=== PATIENT | male | born 1970 | race Caucasian/White ===

== ENCOUNTER → 2019-04-08 09:42 | Outpatient (BNVA) | payer MEDICARE, SELFPAY | PROVIDERS: Family Provider Family Medicine; PCP Family Medicine; Visit Provider Family Medicine | DX: E11.9 Type 2 diabetes mellitus without complications (principal); I10 Essential (primary) hypertension; F41.1 Generalized anxiety disorder; K21.9 Gastro-esophageal reflux disease without esophagitis; E78.5 Hyperlipidemia, unspecified; E78.00 Pure hypercholesterolemia, unspecified | CPT/HCPCS: 80048; 83036 ==

== ENCOUNTER → 2019-12-18 11:06 | Outpatient (BNVA) | payer MEDICARE, SELFPAY | PROVIDERS: Family Provider Family Medicine; PCP Family Medicine; Visit Provider Family Medicine | DX: E11.9 Type 2 diabetes mellitus without complications (principal); F41.1 Generalized anxiety disorder; E78.5 Hyperlipidemia, unspecified; N52.9 Male erectile dysfunction, unspecified; K21.9 Gastro-esophageal reflux disease without esophagitis; I10 Essential (primary) hypertension; E78.00 Pure hypercholesterolemia, unspecified; Z28.21 Immunization not carried out because of patient refusal; B96.89 Other specified bacterial agents as the cause of diseases classified elsewhere; J32.9 Chronic sinusitis, unspecified | CPT/HCPCS: 80053; 80061; 83036 ==

== ENCOUNTER → 2020-03-23 09:40 | Outpatient (BNVA) | payer MEDICARE, SELFPAY | PROVIDERS: Family Provider Family Medicine; PCP Family Medicine; Visit Provider Family Medicine | DX: E11.9 Type 2 diabetes mellitus without complications (principal); Z88.9 Allergy status to unspecified drugs, medicaments and biological substances | CPT/HCPCS: 83036 ==

== ENCOUNTER → 2020-04-01 11:53 | Outpatient (BNVA) | payer MEDICARE, SELFPAY | PROVIDERS: Family Provider Family Medicine; PCP Family Medicine; Visit Provider Emergency Medicine | DX: Z20.822 Contact with and (suspected) exposure to COVID-19 (principal); R68.89 Other general symptoms and signs | CPT/HCPCS: 87400; 87635 ==

== ENCOUNTER → 2020-04-05 16:58 | Outpatient (BNVA) | payer MEDICARE, SELFPAY | PROVIDERS: Family Provider Family Medicine; PCP Family Medicine; Visit Provider Emergency Medicine | DX: Z20.822 Contact with and (suspected) exposure to COVID-19 (principal); R10.9 Unspecified abdominal pain; R11.2 Nausea with vomiting, unspecified | CPT/HCPCS: 87635 ==

== ENCOUNTER 2020-04-06 12:26 | Outpatient (CLI) | payer MEDICARE, SELFPAY ==
--- NOTE | 2020-04-06 12:35 | XRR_ITS ---
PROCEDURE INFORMATION: Exam: XR Complete Acute Abdomen Series Exam date and time: 04/06/2020 12:53 PM Age: 50 years old Clinical indication: Nausea and vomiting; Abdominal pain; Generalized; Patient HX: Abd pain all over x 14 days, n/v; Additional info: R10.9 - unspecified abdominal pain TECHNIQUE: Imaging protocol: XR complete acute abdomen series, including 2 or more views of the abdomen and a single view chest. COMPARISON: No relevant prior studies available. FINDINGS: Lungs: Normal. No consolidation. Pleural spaces: Normal. No pleural effusions. No pneumothorax. Heart/Mediastinum: Normal. No cardiomegaly. Gastrointestinal tract: Peak there is moderate colonic fecal stasis in the ascending colon and proximal descending colon. No bowel dilation. Intraperitoneal space: Normal. No free air. Bones/joints: Surgical hardware is seen in the cervical spine No acute fracture. Soft tissues: Normal. XR/XR acute abdomen series [id number] IMPRESSION: 1. No acute chest abnormalities. 2. Negative for acute GI abnormality 3. Surgical hardware is seen in the cervical spine
== END 2020-04-06 12:27 | disposition home or self-care (01) ==
LOC: RAD 12:31
PROVIDERS: PCP Family Medicine; Visit Provider Emergency Medicine
DX: R10.9 Unspecified abdominal pain (principal); R11.2 Nausea with vomiting, unspecified
CPT/HCPCS: 74022

== ENCOUNTER → 2020-06-23 10:15 | Outpatient (BNVA) | payer MEDICARE, SELFPAY | PROVIDERS: PCP Family Medicine; Visit Provider Family Medicine | DX: E11.9 Type 2 diabetes mellitus without complications (principal); I10 Essential (primary) hypertension | CPT/HCPCS: 80053; 83036 ==

== ENCOUNTER → 2020-08-03 12:12 | Outpatient (BNVA) | payer MEDICARE, SELFPAY | PROVIDERS: PCP Family Medicine; Visit Provider Family Medicine | DX: E11.9 Type 2 diabetes mellitus without complications (principal); N18.1 Chronic kidney disease, stage 1; Z88.9 Allergy status to unspecified drugs, medicaments and biological substances; Z74.09 Other reduced mobility; G89.28 Other chronic postprocedural pain; Z00.00 Encounter for general adult medical examination without abnormal findings | CPT/HCPCS: 80048 ==

== ENCOUNTER → 2020-10-06 10:15 | Outpatient (BNVA) | payer MEDICARE, SELFPAY | PROVIDERS: PCP Family Medicine; Visit Provider Family Medicine | DX: E11.9 Type 2 diabetes mellitus without complications (principal); N18.1 Chronic kidney disease, stage 1; E78.00 Pure hypercholesterolemia, unspecified; M62.830 Muscle spasm of back; Z88.9 Allergy status to unspecified drugs, medicaments and biological substances; S46.811A Strain of other muscles, fascia and tendons at shoulder and upper arm level, right arm, initial encounter | CPT/HCPCS: 80053; 80061; 83036 ==

== ENCOUNTER → 2021-04-20 10:01 | Outpatient (BNVA) | payer MEDICARE, SELFPAY | PROVIDERS: PCP Family Medicine; Visit Provider Family Medicine | DX: N52.9 Male erectile dysfunction, unspecified (principal); E11.9 Type 2 diabetes mellitus without complications; F41.1 Generalized anxiety disorder; N18.1 Chronic kidney disease, stage 1; I10 Essential (primary) hypertension; E78.00 Pure hypercholesterolemia, unspecified; N52.2 Drug-induced erectile dysfunction | CPT/HCPCS: 80048; 83036 ==

== ENCOUNTER → 2021-04-24 10:04 | Outpatient (BNVA) | payer MEDICARE, SELFPAY | PROVIDERS: PCP Family Medicine; Visit Provider Nurse Practitioner Family | DX: Z20.822 Contact with and (suspected) exposure to COVID-19 (principal); J11.1 Influenza due to unidentified influenza virus with other respiratory manifestations; R68.89 Other general symptoms and signs | CPT/HCPCS: 87400; 87635 ==

== ENCOUNTER 2021-05-04 22:19 | Emergency (ER) | payer MEDICARE, SELFPAY ==
--- NOTE | 2021-05-04 22:25 | XRR_ITS ---
PROCEDURE INFORMATION: Exam: XR Chest Exam date and time: 05/04/2021 10:25 PM Age: 51 years old Clinical indication: Shortness of breath; Prior surgery; Surgery type: Cervical fusion; Patient HX: SOB. Flu positive. ; Additional info: Flu like syndrome TECHNIQUE: Imaging protocol: XR of the chest. Views: 1 view. COMPARISON: CR XR acute abdomen series [id number] 04/06/2020 1:08 PM FINDINGS: Lungs: Ill-defined opacity in the retrocardiac left lower lung. Right lung is clear. Pleural spaces: There is no pleural effusion or pneumothorax. Heart/Mediastinum: Cardiomediastinal contours are unremarkable. Bones/joints: Lower cervical fusion noted. XR/XR chest 1V portable [id number] IMPRESSION: Nonspecific left lower lung opacity. Possible infection.
[2021-05-04 22:27] VITALS: BP 136/95; PULSE 85; RESP 16; TEMP 36.6; O2SAT 95; BMI 34.0
--- NOTE | 2021-05-04 23:35 | W.ED.NAVMDI ---
HPI - Nausea/Vomiting/Diarrhea General: Chief complaint: Nausea/Vomiting/Diarrhea Stated complaint: + Flu\ N\V Time Seen by Provider: 05/04/21 23:33 History of Present Illness: 51-year-old male patient comes in today with complaints of nausea and vomiting and diarrhea starting this afternoon. Patient had tested positive for for the flu on 24 April. Patient reports starting to feel better yesterday until this afternoon he started having nausea and vomiting. Patient reports diffuse abdominal pain. Patient appears mildly unwell but not toxic. Patient appears in mild pain. Patient has a history of diabetes mellitus, hypertension, GERD, hyperlipidemia, and chronic kidney disease. Patient reports no abdominal surgeries. Associated nausea: Yes Associated symtoms: Reports malaise and nausea Review of Systems General: Reports: 10 or more systems reviewed and unremarkable except in HPI and below Const: Reports: malaise GI: Reports: abdominal pain, nausea and diarrhea PFSH ED PFSH: Medical History Benign hypertension CKD (chronic kidney disease) Erectile dysfunction PRATEEK (generalized anxiety disorder) GERD (gastroesophageal reflux disease) Hyperlipidemia Multiple allergies ELENA (obstructive sleep apnea) Type 2 diabetes mellitus Unable to tolerate Metformin. Surgical History H/O neck surgery Previous back surgery S/P vasectomy Family History Mother Cancer Father Diabetes Other Hypertension Social History Smoking and tobacco status: former smoker Alcohol intake: former Caregiver/support person: No Household members: foster family Housing: House Marital status: Legally Current occupational status: disabled Current gender identity: Male Physical Exam Const: COMMON NORMALS: alert HENMT: COMMON NORMALS: normocephalic and Normal external nose present HEAD & SCALP: normocephalic NOSE: Normal external nose present THROAT: posterior oropharynx normal Eye: COMMON NORMALS: Equal, round and reactive pupils present PUPIL: Yes Equal, round and reactive pupils present Resp: COMMON NORMALS: normal respiratory effort and clear to auscultation bilaterally AUSCULTATION: clear to auscultation bilaterally Cardio: COMMON NORMALS: regular rate and regular rhythm RATE: regular rate RHYTHM: regular rhythm GI: PALPATION: Yes Firmness to palpation present (GI), Yes Tenderness to palpation present (GI) (Generalized) and No Guarding due to palpation present (GI) : COMMON NORMALS: Yes no CVA tenderness BLADDER/KIDNEY EXAM: Yes no CVA tenderness Back/Pelvis: COMMON NORMALS: no CVA tenderness Extremity: COMMON NORMALS: no pedal edema Neuro: SENSORIUM/ORIENTATION: Yes alert Skin: COMMON NORMALS: no rashes or lesions noted GENERAL SKIN EXAM: no rashes or lesions noted Course ED course: 29, Dr. Fox from [facility] contacted me with report from CT scan of abdomen pelvis. Patient was noted to have a large portal vein clot to his main venous branch. No other abnormalities was noted to the CT scan. I discussed this with Dr. Olivares who recommended I contact vascular at [facility] in [place] for further recommendations. Patient was notified of abnormality and understands. Patient reports some improvement in symptoms since IV fluids and Zofran. Vital Signs: Vital signs: Vital Signs Temperature 97.9 F 05/04/21 22:27 Pulse Rate 85 05/04/21 22:27 Respiratory Rate 16 05/04/21 22:27 Blood Pressure 136/95 05/04/21 22:27 Pulse Oximetry 95 05/04/21 22:27 MDM - Nausea/Vomiting/Diarrhea Medical Decision Making 51-year-old male patient comes in today with abdominal pain. On exam patient is alert and oriented. Patient has abdominal tenderness. Normal bowel sounds. Patient recently got over the flu. Vital signs were normal. Differential diagnosis includes but not limited to gastroenteritis, bowel obstruction, dehydration, cholecystitis, appendicitis. CBC was unremarkable. CMP noted a elevated blood sugar of 575 and sodium of 132. Patient was given IV fluids and ondansetron with improvement in pain and discomfort. CT of the abdomen pelvis noted a nonocclusive thrombosis of the portal vein. I reviewed this with Dr. Olivares who recommended we talk to vascular at [facility] in [place]. I talked to Dr. Wise who recommended no vascular intervention at this time, with recommendations for DVT treatment and further evaluation for the cause of thrombosis. I discussed this further with Dr. Olivares who agreed with plan with follow-up with Dr. Fuentes for further evaluation regarding the thrombosis. Patient was given 100 mg of enoxaparin with 10 mg of Eliquis. Patient will be continued on Eliquis per DVT dosing. Patient reported understanding of care plan and need for follow-up or return to the ER. Patient was also given 10 units of Humalog insulin for his elevated blood sugar. Lab Data : 05/04/21 23:40 05/04/21 23:40 Radiology Impressions Chest X-Ray 05/04/21 22:25 IMPRESSION: Nonspecific left lower lung opacity. Possible infection. ADDENDUM: 05/05/[address] demonstrates no abnormality in the left lower lung. Abdomen/Pelvis CT 05/04/21 23:42 IMPRESSION: 1. Extensive nonocclusive thrombus in the portal vein. 2. Incidental findings above. Laboratory Results WBC 13.0 10^3/uL (4.0-10.0) H 05/04/21 23:40 RBC 6.05 10^6/uL (4.1-5.3) H 05/04/21 23:40 Hgb 16.9 g/dL (11.7-16.6) H 05/04/21 23:40 Hct 49.3 % (42.0-52.0) 05/04/21 23:40 MCV 81.5 fl (80-94) 05/04/21 23:40 MCH 27.9 pg (28.0-34.0) L 05/04/21 23:40 MCHC 34.3 g/dL (30.0-36.0) 05/04/21 23:40 RDW 12.4 % (12.1-15.1) 05/04/21 23:40 Plt Count 127 10^3/cmm (130-400) L 05/04/21 23:40 MPV 10.7 fL (7.4-10.4) H 05/04/21 23:40 Neut % (Auto) 64.7 % 05/04/21 23:40 Lymph % (Auto) 23.1 % 05/04/21 23:40 [place] % (Auto) 9.6 % 05/04/21 23:40 Eos % (Auto) 1.2 % 05/04/21 23:40 Baso % (Auto) 0.2 % 05/04/21 23:40 Neut # (Auto) 8.37 10^3/uL (1.8-7.7) H 05/04/21 23:40 Lymph # (Auto) 3.0 10^3/uL (0.8-4.8) 05/04/21 23:40 [place] # (Auto) 1.2 10^3/uL (0.2-0.9) H 05/04/21 23:40 Eos # (Auto) 0.2 10^3/uL (0.0-0.8) 05/04/21 23:40 Baso # (Auto) 0.0 10^3/uL (0.0-0.1) 05/04/21 23:40 Nucleated RBC % (auto) 0 % 05/04/21 23:40 Nucleated RBCs # 0.0 /100WBC 05/04/21 23:40 Sodium 132 mmol/L (136-145) L 05/04/21 23:40 Potassium 3.9 mmol/L (3.5-5.1) 05/04/21 23:40 Chloride 94 mmol/L (98-107) L 05/04/21 23:40 Carbon Dioxide 25 mmol/L (22-29) 05/04/21 23:40 Anion Gap 16.9 (5-19) 05/04/21 23:40 BUN 25 mg/dL (6-20) H 05/04/21 23:40 Creatinine 1.2 mg/dL (0.7-1.2) 05/04/21 23:40 GFR Calculation 64.1 mL/min (90-130) L 05/04/21 23:40 Glucose 575 mg/dL (65-115) H* 05/04/21 23:40 Calculated Osmolality 305 mOsm/kg (285-295) H 05/04/21 23:40 Calcium 9.2 mg/dL (8.5-10.5) 05/04/21 23:40 Total Bilirubin 0.8 mg/dL (0.15-1.2) 05/04/21 23:40 AST 32 U/L (0-40) 05/04/21 23:40 ALT 90 U/L (0-41) H 05/04/21 23:40 Alkaline Phosphatase 111 IU/L (40-130) 05/04/21 23:40 Total Protein 7.2 g/dL (6.6-8.7) 05/04/21 23:40 Albumin 4.4 g/dL (3.5-5.2) 05/04/21 23:40 Globulin 2.8 g/dL (1.3-4.6) 05/04/21 23:40 Lipase 80 U/L (13-60) H 05/04/21 23:40 Serum Ketones Negative (Negative) 05/04/21 23:40 Discharge Plan Discharge Patient Disposition: Home Clinical Impression: Deep vein thrombosis of portal vein Abdominal pain Qualifiers: Abdominal location: generalized Qualified Code(s): R10.84 - Generalized abdominal pain Condition: Stable Prescriptions: New Eliquis DVT-PE Treat 30D Start 5 mg (74 tabs) tablets,dose pack See Rx Instructions .ROUTE .COMPLEX Qty: 74 0RF Rx Instructions: orally per package directions hydrocodone-acetaminophen 5-325 mg tablet 1 tab PO Q8H PRN (Reason: pain) Qty: 7 0RF No Action amlodipine 10 mg tablet 10 mg PO DAILY 90 Days Qty: 90 1RF atorvastatin 20 mg tablet See Rx Instructions .ROUTE .COMPLEX Qty: 90 1RF Dose Instruction: TAKE 1 TABLET BY MOUTH EVERY DAY Rx Instructions: TAKE 1 TABLET BY MOUTH EVERY DAY citalopram 10 mg tablet See Rx Instructions .ROUTE .COMPLEX Qty: 90 1RF Dose Instruction: TAKE 1 TABLET BY MOUTH EVERY DAY Rx Instructions: TAKE 1 TABLET BY MOUTH EVERY DAY pantoprazole 40 mg tablet,delayed release (DR/EC) See Rx Instructions .ROUTE .COMPLEX Qty: 90 1RF Dose Instruction: TAKE 1 TABLET BY MOUTH DAILY Rx Instructions: TAKE 1 TABLET BY MOUTH DAILY olmesartan 40 mg tablet 40 mg PO DAILY 90 Days Qty: 90 1RF cyclobenzaprine 5 mg tablet 10 mg PO TID MDD 6 tabs PRN (Reason: muscle spasm) Qty: 30 1RF Rx Instructions: 1 or 2 tabs as needed azithromycin 250 mg tablet See Rx Instructions PO .COMPLEX Qty: 6 0RF Rx Instructions: take 500 mg today (day 1), then 250 mg for 4 days (days 2-5) PO dexamethasone 6 mg tablet 6 mg PO DAILY 7 Days Qty: 7 0RF oseltamivir [Tamiflu] 75 mg capsule 75 mg PO BID 5 Days Qty: 10 0RF sildenafil [Viagra] 100 mg tablet 100 mg PO QDAY PRN (Reason: sexual activity) 30 Days Qty: 30 1RF glipizide 10 mg tablet extended release 24hr 10 mg PO BID 90 Days Qty: 180 1RF buspirone 10 mg tablet See Rx Instructions .ROUTE .COMPLEX Qty: 90 2RF Dose Instruction: TAKE 1 TABLET BY MOUTH THREE TIMES DAILY Rx Instructions: TAKE 1 TABLET BY MOUTH THREE TIMES DAILY hydroxyzine HCl 10 mg tablet See Rx Instructions .ROUTE .COMPLEX Qty: 30 2RF Dose Instruction: TAKE 1 TABLET BY MOUTH AT BEDTIME FOR ANXIETY Rx Instructions: TAKE 1 TABLET BY MOUTH AT BEDTIME FOR ANXIETY empagliflozin 10 mg tablet 10 mg PO QAM 30 Days Qty: 30 2RF Discharge Orders: Discharge ED (Routine); Ordered 05/05/21 Ordered By: Mark Florez Referrals: Brooke Leonard MD [Primary Care Provider] - Discharge Diet: Usual diet Discharge Activity: Increase activity as tolerated Patient Instructions: Deep Vein Thrombosis (ED) Activity Restrictions/Additional Instructions: Home and rest. Drink plenty of water and fluids. Follow-up with primary care within 1 week. Case management will contact you with regard to follow-up with Dr. Fuentes for further evaluation and treatment regarding the thrombosis. Light diet. Return to ER for worsening symptoms or new concerns. Coding Level of Care Code ED Reclamation Kettle Tender for Alexia Fwd Exam Comprehensive
--- NOTE | 2021-05-04 23:42 | CTR_ITS ---
PROCEDURE INFORMATION: Exam: CT Abdomen And Pelvis With Contrast Exam date and time: 05/04/2021 11:42 PM Age: 51 years old Clinical indication: Nausea and vomiting; Abdominal pain; Patient HX: C/O generalized abd pain with black emesis. ; Additional info: Diffuse abd pain, n/v/d TECHNIQUE: Imaging protocol: Computed tomography of the abdomen and pelvis with contrast. Radiation optimization: All CT scans at this facility use at least one of these dose optimization techniques: automated exposure control; mA and/or kV adjustment per patient size (includes targeted exams where dose is matched to clinical indication); or iterative reconstruction. Contrast material: OMNI 300; Contrast volume: 95 ml; Contrast route: INTRAVENOUS (IV); COMPARISON: CR XR acute abdomen series [id number] 04/06/2020 1:08 PM RADIATION DOSE METRICS: Total DLP (mGy-cm): 1910.6 FINDINGS: Lungs: Lung bases are clear. Liver: The liver is normal. Gallbladder and bile ducts: The gallbladder is normal. There is no biliary dilation. Pancreas: The pancreas is unremarkable. Spleen: The spleen is unremarkable. Adrenal glands: There is an 11 mm benign myelolipoma in the left adrenal gland. Kidneys and ureters: The kidneys are unremarkable. No hydronephrosis or stones. No ureteral dilation. Stomach and bowel: The stomach is unremarkable. The small bowel is nondilated. The colon is unremarkable. Appendix: The appendix is normal. Intraperitoneal space: There is no free air or significant intraperitoneal free fluid. Vasculature: There is a large nonocclusive thrombus in the main, right and left portal veins. Splenic and superior mesenteric veins are patent. The aorta is unremarkable. There is no aneurysm. Lymph nodes: There is no lymphadenopathy in the retroperitoneum, mesentery, pelvis or inguinal regions. Urinary bladder: The urinary bladder is unremarkable. Reproductive: The prostate and seminal vesicles are unremarkable. Bones/joints: There are chronic bilateral L5 pars defects with grade 1 anterolisthesis of L5 on S1. There is mild degenerative disease in the lumbar spine. The pelvis and proximal femora are intact. Soft tissues: The abdominal wall is intact. CT/CT abdomen pelvis w con* [id number] IMPRESSION: 1. Extensive nonocclusive thrombus in the portal vein. 2. Incidental findings above.
[2021-05-04 23:46] LABS: Basophils % 0.2 %; Eosinophils # 0.2 10^3/uL (0.0-0.8); Eosinophils % 1.2 %; Hematocrit 49.3 % (42.0-52.0); Hemoglobin 16.9 g/dL (11.7-16.6); Lymphocytes % 23.1 %; Mean Corpuscular HGB Conc 34.3 g/dL (30.0-36.0); Mean Corpuscular Hemoglobin 27.9 pg (28.0-34.0); Mean Corpuscular Volume 81.5 fl (80-94); Mean Platelet Volume 10.7 fL (7.4-10.4); Monocytes # 1.2 10^3/uL (0.2-0.9); Monocytes % 9.6 %; Neutrophils # 8.37 10^3/uL (1.8-7.7); Neutrophils % 64.7 %; Nucleated Red Blood Cells % 0 %; Platelet Count 127 10^3/cmm (130-400); Red Blood Count 6.05 10^6/uL (4.1-5.3); Red Cell Distribution Width 12.4 % (12.1-15.1)
[2021-05-04] MEDS: dexamethasone 10 mg/mL INJ IVP (23:52)
[2021-05-04] MEDS: sodium chloride 0.9% 1,000 ML 999 ML IV (23:52)
[2021-05-04] MEDS: ondansetron 2 mg/ML SDV 2 mL 4 MG IVP (23:52)
[2021-05-04] MEDS: iohexol 300 mg/mL 100 mL Btl IV (23:58)
[2021-05-05 00:07] LABS: Alanine Aminotransferase 90 U/L (0-41); Albumin Level 4.4 g/dL (3.5-5.2); Alkaline Phosphatase 111 IU/L (40-130); Anion Gap 16.9 (5-19); Aspartate Amino Transferase 32 U/L (0-40); Blood Urea Nitrogen 25 mg/dL (6-20); Calcium 9.2 mg/dL (8.5-10.5); Carbon Dioxide 25 mmol/L (22-29); Chloride 94 mmol/L (98-107); Globulin 2.8 g/dL (1.3-4.6); Glomerular Filtration Rate 64.1 mL/min (90-130); Lipase 80 U/L (13-60); Osmolality Calculated 305 mOsm/kg (285-295); Potassium 3.9 mmol/L (3.5-5.1); Sodium 132 mmol/L (136-145); Total Bilirubin 0.8 mg/dL (0.15-1.2); Total Protein 7.2 g/dL (6.6-8.7)
[2021-05-05 00:15] LABS: Glucose 575 mg/dL (65-115)
[2021-05-05] MEDS: insulin lispro 100 unit/1 mL 10 UNIT SUBCUT (00:29)
[2021-05-05 00:36] LABS: Ketone (Acetest) Serum Negative (Negative)
[2021-05-05] MEDS: enoxaparin 100 mg/mL Syringe SUBCUT (00:55)
[2021-05-05 01:38] LABS: Glucose Point of Care 459 mg/dL (70-110)
[2021-05-05] MEDS: apixaban 5 mg Tablet 10 MG PO (01:44)
--- NOTE | 2021-05-12 15:17 | PC.SOCIAL ---
Addendum entered by Zeinab Castano 07/01/21 15:18: An appointment has been scheduled for patient for February,. Patient is on the cancellation list. Addendum entered by Zeinab Castano 06/01/21 10:05: ed case manager called clinic on 05.24.21 and 06.01.21 to confirm if patient referral had been received and if an appointment had been scheduled. promotions firm accounts manager was told that referral had been received, but not appointment had been scheduled at this time. Original Note: Discussed case with Dr Marc and his medical opinion is the referral for portal vein thrombosis should go to GI specialist. Called patient and he is okay and prefers [facility] in [place] GI clinic. Called clinic to alert of referral and sent information to request follow with order provided by Dr Marc to [facility] and . Confirmation received that fax was sent successfully. Will need to follow up on referral by end of week.
--- NOTE | 2021-05-18 14:54 | DCPLANNER ---
Addendum entered by Zeinab Castano 06/29/21 07:57: manager hydraulic was told that patient refused appointment here, will be going somewhere else for treatment. Addendum entered by Zeinab Castano 05/28/21 08:57: Patient has a follow up appointment scheduled for Monday, June 07, [address] at 3:[address] Mane. Clinic will call patient with appointment information. Original Note: manager hydraulic had message to schedule a follow up appointment for patient Dr. Mane. manager hydraulic called Marline, junior project coordinator at [facility]. manager hydraulic gave Marline patients information, which will be printed and reviewed. Clinic will call patient with appointment information.
== END 2021-05-05 01:45 | disposition home or self-care (01) ==
PROVIDERS: Emergency Provider Nurse Practitioner Family; PCP Family Medicine
DX: R10.84 Generalized abdominal pain (principal); I81 Portal vein thrombosis; Z79.84 Long term (current) use of oral hypoglycemic drugs; I10 Essential (primary) hypertension; E78.5 Hyperlipidemia, unspecified; E11.9 Type 2 diabetes mellitus without complications; Z87.891 Personal history of nicotine dependence
CPT/HCPCS: 36416; 71045; 74177; 80053; 82009; 82962; 83690; 85025; 96361; 96372; 96374; 96375; 99283; J1100; J1650; J1815; J2405; J7030; Q9967

== ENCOUNTER → 2021-07-12 08:48 | Outpatient (BNVA) | payer MEDICARE, SELFPAY | PROVIDERS: PCP Family Medicine; Visit Provider Family Medicine | DX: E11.9 Type 2 diabetes mellitus without complications (principal); E78.00 Pure hypercholesterolemia, unspecified; I10 Essential (primary) hypertension; M54.32 Sciatica, left side | CPT/HCPCS: 80053; 80061; 83036 ==

== ENCOUNTER → 2021-10-11 13:39 | Outpatient (BNVA) | payer MEDICARE, SELFPAY | PROVIDERS: PCP Family Medicine; Visit Provider Family Medicine | DX: E11.9 Type 2 diabetes mellitus without complications (principal); I10 Essential (primary) hypertension; M54.32 Sciatica, left side; G89.29 Other chronic pain; I81 Portal vein thrombosis; F41.1 Generalized anxiety disorder; K21.9 Gastro-esophageal reflux disease without esophagitis; M79.605 Pain in left leg | CPT/HCPCS: 72100; 73590; 80048; 83036; 83735 ==

== ENCOUNTER 2021-12-01 08:49 | Outpatient (CLI) | payer MEDICARE, SELFPAY ==
--- NOTE | 2021-12-01 08:45 | MR_ITS ---
WS: [id number] MRI LUMBAR SPINE NONCONTRAST TECHNIQUE: Sagittal T1, T2 and STIR imaging. Axial T1 and T2 imaging. CLINICAL INFORMATION: M79.605 - Pain in left leg COMPARISON: Radiograph October 11, 2021 FINDINGS: Grade 1 anterolisthesis L5 on S1 measuring 5 mm with bilateral pars defects. Small central protrusion T2-T3 seen on diesel dinkey operator imaging with mild central canal stenosis. Prior cervical fusion C3-C7. L1-L2: Normal L2-L3: Mild LEFT and no significant RIGHT foraminal narrowing. Mild facet arthropathy. Spinal canal i s patent. L3-L4: Shallow central disc protrusion with a small annular fissure. Impingement on the traversing RI GHT L4 nerve root. Mild LEFT and no significant RIGHT foraminal narrowing. Mild central canal stenosis. L4-L5: Disc osteophyte complex with impingement traversing RIGHT L5 nerve root in the subarticular re cess. Mild bilateral foraminal narrowing. Moderate facet arthropathy. L5-S1: Disc osteophyte complex with endplate ridging. Grade 1 anterolisthesis. Bilateral pars defects . Moderate facet arthropathy. Moderate bilateral foraminal narrowing impinges the exiting L5 nerve ro ots LEFT greater than RIGHT. Visualized pelvic bony structures: Normal. Paravertebral soft tissues: Normal. MR/MR lumbar spine wo con* [id number] IMPRESSION: 1. Grade 1 retrolisthesis L5 on S1 with bilateral pars defects. 2. Shallow RIGHT pericentral protrusion L3-L4 with a small annular fissure. Im pingement traversing RIGHT greater than LEFT L4 nerve roots. Mild central canal stenosis. 3. Shallow RIGHT subarticular protrusion L4-L5 impinges the traversing RIGHT L 5 nerve root in the subarticular recess. 4. Moderate LEFT greater than RIGHT L5-S1 foraminal narrowing impinges the exi ting LEFT greater than RIGHT L5 nerve roots. 5. Mild LEFT L3-L4 foraminal narrowing with small LEFT foraminal protrusion 6. Moderate facet arthropathy L4-L5 and L5-S1.
== END 2021-12-01 08:50 | disposition home or self-care (01) ==
LOC: RAD 08:49
PROVIDERS: PCP Family Medicine; Visit Provider Family Medicine
DX: M79.605 Pain in left leg (principal); M51.26 Other intervertebral disc displacement, lumbar region; M47.896 Other spondylosis, lumbar region; M47.897 Other spondylosis, lumbosacral region
CPT/HCPCS: 72148

== ENCOUNTER → 2021-12-16 09:29 | Outpatient (BNVA) | payer MEDICARE, SELFPAY | PROVIDERS: PCP Family Medicine; Visit Provider Physician Assistant | DX: M43.17 Spondylolisthesis, lumbosacral region (principal); M51.36 Other intervertebral disc degeneration, lumbar region; M47.27 Other spondylosis with radiculopathy, lumbosacral region | CPT/HCPCS: 99203; 99204 ==

== ENCOUNTER → 2022-01-11 10:59 | Outpatient (BNVA) | payer MEDICARE, SELFPAY | PROVIDERS: PCP Family Medicine; Visit Provider Family Medicine | DX: M51.36 Other intervertebral disc degeneration, lumbar region (principal); M47.27 Other spondylosis with radiculopathy, lumbosacral region; E11.9 Type 2 diabetes mellitus without complications; I10 Essential (primary) hypertension; E78.00 Pure hypercholesterolemia, unspecified; N18.1 Chronic kidney disease, stage 1 | CPT/HCPCS: 80053; 80061; 83036 ==

== ENCOUNTER → 2022-01-18 09:27 | Outpatient (BNVA) | payer MEDICARE, SELFPAY | PROVIDERS: PCP Family Medicine; Visit Provider Anesthesiology Pain Medicine | DX: M51.36 Other intervertebral disc degeneration, lumbar region (principal); M43.17 Spondylolisthesis, lumbosacral region; M47.27 Other spondylosis with radiculopathy, lumbosacral region; M79.604 Pain in right leg; M79.605 Pain in left leg; Z87.891 Personal history of nicotine dependence | CPT/HCPCS: 99204 ==

== ENCOUNTER → 2022-02-03 08:37 | Outpatient (BNVA) | payer MEDICARE, SELFPAY | PROVIDERS: PCP Family Medicine; Visit Provider Physician Assistant | DX: M43.17 Spondylolisthesis, lumbosacral region (principal); M47.27 Other spondylosis with radiculopathy, lumbosacral region | CPT/HCPCS: 99213 ==

== ENCOUNTER → 2022-06-28 14:20 | Outpatient (BNVA) | payer MEDICARE, SELFPAY | PROVIDERS: PCP Family Medicine; Visit Provider Family Medicine | DX: I10 Essential (primary) hypertension (principal); F41.1 Generalized anxiety disorder; M51.36 Other intervertebral disc degeneration, lumbar region; E11.9 Type 2 diabetes mellitus without complications; K21.9 Gastro-esophageal reflux disease without esophagitis; I81 Portal vein thrombosis | CPT/HCPCS: 80053; 83036 ==

== ENCOUNTER → 2022-12-05 14:21 | Outpatient (BNVA) | payer MEDICARE, SELFPAY | PROVIDERS: PCP Family Medicine; Visit Provider Family Medicine | DX: Z12.5 Encounter for screening for malignant neoplasm of prostate (principal); Z00.00 Encounter for general adult medical examination without abnormal findings; Z71.89 Other specified counseling; E11.9 Type 2 diabetes mellitus without complications; N52.9 Male erectile dysfunction, unspecified; I10 Essential (primary) hypertension; E78.5 Hyperlipidemia, unspecified; M51.36 Other intervertebral disc degeneration, lumbar region; K21.9 Gastro-esophageal reflux disease without esophagitis | CPT/HCPCS: 80053; 80061; G0103 ==

== ENCOUNTER → 2023-01-03 13:35 | Outpatient (BNVA) | payer MEDICARE, SELFPAY | PROVIDERS: PCP Family Medicine; Visit Provider Family Medicine | DX: E11.9 Type 2 diabetes mellitus without complications (principal) | CPT/HCPCS: 83036 ==

== ENCOUNTER 2023-02-16 08:55 | Outpatient (CLI) | payer MEDICARE, SELFPAY ==
--- NOTE | 2023-02-16 10:00 | USCV_ITS ---
Milton Santizo Age: 52 Gender: M : 1970 Exam Date: 02/16/2023 09:16 Ordering Phys: Brooke Leonard MD Technologist: JULIANNE [place] [facility] [place]: H/O PORTAL VEIN THROMBUS X1YR AGO Vein Flow Artery Peak Velocity RHV Seen MHA 138/29 MHV Seen RHA 76/33 LHV Seen LHA 92/28 MPV Seen SPA 108/31 RPV Seen LPV Seen Liver Length: 18.2 cm SPV Seen Spleen Length: 16.1 cm IVC Seen PV Diameter: 10.0 mm Fluid Collection/Ascites: NO Location: Findings Limited and TDS due to large body habitus and bowel gas Conclusions Technically difficult limited study Hepatic veins and portal veins appear patent Hepatic arteries and splenic artery are patent. Mild splenomegaly Don Serra MD (Electronically Signed) Final Date: 16 February 2023 13:32 S
== END 2023-02-16 08:56 | disposition home or self-care (01) ==
LOC: RAD 08:55
PROVIDERS: PCP Family Medicine; Visit Provider Family Medicine
DX: Z86.718 Personal history of other venous thrombosis and embolism (principal); R16.1 Splenomegaly, not elsewhere classified
CPT/HCPCS: 76705

== ENCOUNTER → 2023-02-22 10:41 | Outpatient (BNVA) | payer MEDICARE, SELFPAY | PROVIDERS: PCP Family Medicine; Referring Provider Family Medicine; Visit Provider Family Medicine | DX: E11.9 Type 2 diabetes mellitus without complications (principal); I81 Portal vein thrombosis; I10 Essential (primary) hypertension | CPT/HCPCS: 80053; 83036; 85025 ==

== ENCOUNTER → 2023-06-28 09:29 | Outpatient (BNVA) | payer MEDICARE, SELFPAY | PROVIDERS: PCP Family Medicine; Visit Provider Family Medicine | DX: E11.9 Type 2 diabetes mellitus without complications (principal) | CPT/HCPCS: 80053; 83036 ==

== ENCOUNTER 2023-12-11 19:36 | Emergency (ER) | payer MEDICARE, SELFPAY ==
[2023-12-11 19:38] VITALS: BP 178/86; PULSE 103; RESP 22; TEMP 37.4; O2SAT 89; BMI 41.0
[2023-12-11 20:00] VITALS: BP 123/65; PULSE 71; O2SAT 96
[2023-12-11 20:01] LABS: Bilirubin Urine Negative (Negative); Blood Urine Negative (Negative); Glucose Urine UA 3+ (Normal); Ketones Urine Negative (Negative); Leukocyte Esterase Urine Negative (Negative); Nitrate Urine Negative (Negative); Protein Urine 1+ (Negative); Urine Appearance Clear (CLEAR); Urine Color Yellow (Yellow)
[2023-12-11 20:06] LABS: Add Urine Microscopic? YES; Bacteria Urine None Seen /hpf; Hyaline Casts Urine 2.05 /lpf; RBC Urine 0-2 /hpf (0-2); Squamous Epithelial Cell Urine 0-5 /hpf (0-5); WBC Urine 0-5 /hpf (0-5)
[2023-12-11 20:10] LABS: Specific Gravity, Urine 1.035 (1.005-1.030)
--- NOTE | 2023-12-11 20:45 | XRR_ITS ---
PROCEDURE INFORMATION: Exam: XR Chest Exam date and time: 12/11/2023 9:25 PM Age: 53 years old Clinical indication: Shortness of breath TECHNIQUE: Imaging protocol: Radiologic exam of the chest. Views: 1 view. COMPARISON: CR XR chest 1V portable [id number] 05/04/2021 11:41 PM FINDINGS: Lungs: Small lung volumes with thickening of the interstitium bilaterally. No focal consolidation. Pleural spaces: No pleural effusion. No pneumothorax. Heart/Mediastinum: Prominent cardiac shadow may be related to small lung volumes and portable technique, stable compared to prior exam. Cannot exclude cardiomegaly. Bones/joints: No acute findings. XR/XR chest 1V portable [id number] IMPRESSION: 1. Possible sequelae of mild pulmonary edema. Correlate with volume status. 2. Stable cardiac contour; cannot exclude cardiomegaly.
--- NOTE | 2023-12-11 20:54 | CTR_ITS ---
PROCEDURE INFORMATION: Exam: CT Head Without Contrast Exam date and time: 12/11/2023 9:20 PM Age: 53 years old Clinical indication: Altered mental status/memory loss; Additional info: Encephalopathy, altered mental status TECHNIQUE: Imaging protocol: Computed tomography of the head without contrast. Radiation optimization: All CT scans at this facility use at least one of these dose optimization techniques: automated exposure control; mA and/or kV adjustment per patient size (includes targeted exams where dose is matched to clinical indication); or iterative reconstruction. COMPARISON: No relevant prior studies available. RADIATION DOSE METRICS: Total DLP (mGy-cm): 733 FINDINGS: Brain: No hemorrhage. No mass effect or midline shift. No significant white matter disease. Cerebral ventricles: No ventriculomegaly. Paranasal sinuses: Bilateral maxillary sinus mucosal. No air-fluid level. Mastoid air cells: Visualized mastoid air cells are well aerated. Bones: Unremarkable. No acute fracture. Soft tissues: Unremarkable. CT/CT head wo con* [id number] IMPRESSION: No acute intracranial findings.
--- NOTE | 2023-12-11 20:59 | ED_ITS ---
HPI - Altered Mental Status 2 General: Chief Complaint: Altered Mental Status Stated Complaint: Lathargic, Blisters on feet Time Seen by Provider: 12/11/23 20:46 History of Present Illness: 53-year-old man with a history of obesit y, psoriasis and type 2 diabetes who presents to the emergency room with altered mental status. says after he started a new medication for his psoriasis he developed some blisters on his feet. He gone to another hospital and was given Keflex and hydrocodone. He last took a hydrocodone last night. She says he was extremely somnolent all day today. Initially was agitated and shaking and somewhat diaphoretic. She said his sugar has been high for the last few days. No known fevers. No focal motor deficits. No chest pain. No abdominal pain. He does not feel short of breath. Related Data Home Medications Medication Instructions Recorded Confirmed pregabalin 300 mg capsule 300 mg PO BID 08/17/22 10/02/23 Previous Rx's Medication Instructions Recorded fluticasone propionate 50 1 spray intranasal DAILY PRN 10/15/22 mcg/actuation nasal allergy symptoms #16 grams spray,suspension pen needle, diabetic 31 gauge x #100 ea 02/07/23 5/16 (Comfort EZ Pen Novelty) albuterol sulfate 2.5 mg/3 mL 2.5 mg (3 mL) inhalation Q6H #90 mL 05/01/23 (0.083 %) solution for nebulization 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 meter,continuous #1 ea 06/28/23 (Dexcom G6 Barrel Rifler Broach) dextromethorphan polistirex 30 10 ml PO .at bedtime PRN cough #89 06/28/23 mg/5 mL oral susp ext.release 12hr mL 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 transmitter (Dexcom #1 ea 08/02/23 G6 Transmitter device) amlodipine 10 mg tablet 10 mg PO DAILY 90 days #90 tabs 10/02/23 atorvastatin 20 mg tablet See Rx Instructions .Route 10/02/23 .COMPLEX #90 tabs benzonatate 100 mg capsule 100 mg PO .at bedtime cough 90 10/02/23 days #90 caps 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 sensor (Dexcom G6 #3 ea 10/02/23 Sensor device) buspirone 30 mg tablet 30 mg PO BID PRN anxiety 90 days 10/02/23 #180 tabs empagliflozin 10 mg tablet 10 mg PO QAM 90 days #90 tabs 10/02/23 fluoxetine 40 mg capsule 40 mg PO DAILY 90 days #90 caps 10/02/23 glipizide 10 mg tablet, extended 10 mg PO BID 90 days #180 tabs 10/02/23 release 24 hr hydroxyzine HCl 10 mg tablet See Rx Instructions .Route 10/02/23 .COMPLEX #90 tabs insulin glargine 100 unit/mL (3 60 unit (0.6 mL) SUBCUT DAILY #15 10/02/23 mL) subcutaneous pen (Lantus mL Solostar U-100 Insulin) insulin lispro 100 unit/mL 5 unit (0.05 mL) SUBCUT TID 30 10/02/23 subcutaneous pen (Humalog Kwik days #15 mL (U-100) Insulin) olmesartan 40 mg tablet 40 mg PO DAILY 90 days #90 tabs 10/02/23 pantoprazole 40 mg tablet,delayed See Rx Instructions .Route 10/02/23 release .COMPLEX #90 tabs doxycycline hyclate 100 mg capsule 100 mg PO BID 5 days #10 caps 12/11/23 Allergies Allergy/AdvReac Type Severity Reaction Status Date / Time amoxicillin Allergy Unknown UNKNOWN Verified 12/11/23 19:51 tramadol Allergy Unknown UNKNOWN Verified 12/11/23 19:51 Review of Systems 2 Narrative: Constitutional symptoms: Negative except as documented in HPI. Skin symptoms: Negative except as documented in HPI. Eye symptoms: Negative except as documented in HPI. ENMT symptoms: Negative except as documented in HPI. Respiratory symptoms: Negative except as documented in HPI. Cardiovascular symptoms: Negative except as documented in HPI. Gastrointestinal symptoms: Negative except as documented in HPI. Genitourinary symptoms: Negative except as documented in HPI. Musculoskeletal symptoms: Negative except as documented in HPI. Neurologic symptoms: Negative except as documented in HPI. Psychiatric symptoms: Negative except as documented in HPI. Endocrine symptoms: Negative except as documented in HPI. PFSH ED 2 PFSH: Medical History (Updated 12/11/23 @ 22:10 by Katie Butler MD) Panic CKD (chronic kidney disease) Multiple allergies Erectile dysfunction PRATEEK (generalized anxiety disorder) Type 2 diabetes mellitus Unable to tolerate Metformin. ELENA (obstructive sleep apnea) GERD (gastroesophageal reflux disease) Benign hypertension Hyperlipidemia Surgical History H/O neck surgery Previous back surgery S/P vasectomy Family History Mother Cancer Father Diabetes Other Hypertension Social History Smoking and tobacco/nicotine status: unknown if used tobacco/nicotine Second hand smoke exposure: No Alcohol intake: current Alcohol intake frequency: few times a week Alcohol type: beer Substance/Drug Use: never Caregiver/support person: No Household members: foster family Housing: House Marital status: Legally Current occupational status: disabled Do you think of yourself as: Straight/Heterosexual Current gender identity: Male Physical Exam 2 Narrative: General: Alert, no acute distress. Skin: Warm, mildly diaphoretic. Head: Normocephalic, atraumatic. Neck: Supple, trachea midline. Eye: Extraocular movements are intact. Ears, nose, mouth and throat: Very dry oral mucosa Cardiovascular: Regular, Normal peripheral perfusion. Respiratory: Lungs are clear to auscultation, respirations are non-labored, breath sounds are equal, Symmetrical chest wall expansion. Gastrointestinal: Soft, Nontender, Non distended Musculoskeletal: Normal ROM, no deformity. Neurological: Alert and oriented, No focal neurological deficit observed. Psychiatric: Patient is somewhat agitated and slightly confused. Course 2 Vital Signs: Vital signs: Vital Signs Temperature 99.3 F 12/11/23 19:38 Pulse Rate 103 H 12/11/23 19:38 Respiratory Rate 22 H 12/11/23 19:38 Blood Pressure 178/86 12/11/23 19:38 Pulse Oximetry 89 L 12/11/23 19:38 Oxygen Delivery Me thod Room Air 12/11/23 19:38 MDM - Altered Mental Status Medical Decision Making Medical decision making: Differential diagnosis including but not limited to and based on the above HPI, review of systems and physical exam: In this patient with altered mental status: Stroke. Hypoglycemia. Metabolic encephalopathy. Infections such as pneumonia, urinary tract infection, Covid-19, Influenza. Electrolyte abnormalities such as hypernatremia. Renal failure / uremia. Hepatic encephalopathy. Hypoxemia. Hypercapnic respiratory failure. Psychosis. Drug or alcohol intoxication. Medication overdose. Orders placed to evaluate differential diagnosis based on the above differential, HPI and physical exam CT head: No acute intracranial process. no intracranial hemorrhage, no evidence of infarct. no evidence of acute fracture.This was reviewed and interpreted by myself the ER physician. Chest x-ray: No acute process. No infiltrate. No pneumothorax. This was reviewed and interpreted by myself the ER physician. There is some concern for pulmonary edema. Patient has some renal insufficiency and appears dry on exam Lab Review: Laboratory results were reviewed and interpreted by myself the emergency room physician. Mild leukocytosis. No anemia. BUN/creatinine are elevated over his baseline at 31 and 1.8. Blood glucose is mildly elevated at 194. There was a blood gas done that was venous. I reviewed the patient's medical record. Reexamination: Patient appears much improved. He is no longer altered at all. He says he is very thirsty. He was because membranes appear dry. No focal motor deficits. He says he is ready to go home. We discussed him changing his antibiotics and not to take any more hydrocodone as I have these could have resulted in this. Also just high blood sugars and dehydration could have resulted in this as well. Assessment and plan: Resolved metabolic encephalopathy Dehydration Hyperglycemia Renal insufficiency ?2 L normal saline bolus in the emergency room. - Discharged home - Discussed plan with patient. Answered any questions. - Evaluation and treatment of this problem were appropriate in the emergency setting. Lab Data 12/11/23 21:06 12/11/23 21:06 Radiology Impressions Chest X-Ray 12/11/23 20:45 IMPRESSION: 1. Possible sequelae of mild pulmonary edema. Correlate with volume status. 2. Stable cardiac contour; cannot exclude cardiomegaly. Head CT 12/11/23 20:54 IMPRESSION: No acute intracranial findings. Laboratory Results WBC 11.98 10^3/uL (3.29-11.43) H 12/11/23 21: RBC 5.58 10^6/uL (3.85-5.65) 12/11/23 21: Hgb 14.80 g/dL (11.27-16.99) 12/11/23 21: Hct 46.6 % (37-53) 12/11/23 21: MCV 83.5 fl (82-101) 12/11/23 21: MCH 26.5 pg (27-33) L 12/11/23 21: MCHC 31.8 g/dL (30-55) 12/11/23 21:06 RDW 15.5 % (12.1-15.1) H 12/11/23 21:06 Plt Count 245 10^3/cmm (157-399) 12/11/23 21:06 MPV 9.5 fL (7.4-10.4) 12/11/23 21:06 Neut % (Auto) 78.0 % 12/11/23 21:06 Lymph % (Auto) 11.7 % 12/11/23 21:06 [place] % (Auto) 9.3 % 12/11/23 21:06 Eos % (Auto) 0.0 % 12/11/23 21:06 Baso % (Auto) 0.2 % 12/11/23 21:06 Neut # (Auto) 9.35 10^3/uL (1.8-7.7) H 12/11/23 21:06 Lymph # (Auto) 1.4 10^3/uL (0.8-4.8) 12/11/23 21:06 [place] # (Auto) 1.1 10^3/uL (0.2-0.9) H 12/11/23 21:06 Eos # (Auto) 0.0 10^3/uL (0.0-0.8) 12/11/23 21:06 Baso # (Auto) 0.0 10^3/uL (0.0-0.1) 12/11/23 21:06 Nucleated RBC % (auto) 0 % 12/11/23 21:06 Nucleated RBCs # 0.0 /100WBC 12/11/23 21:06 Specimen Type Venous 12/11/23 21:35 Sample Site Brachial, right 12/11/23 21:35 ABG pH 7.24 (7.35-7.45) L 12/11/23 21:35 ABG pCO2 57.0 mmHg (35-45) H 12/11/23 21:35 ABG pO2 31.1 mmHg (80.0-100.0) L* 12/11/23 21:35 ABG HCO3 24.1 mmol/L (22-26) 12/11/23 21:35 ABG O2 Saturation 65.2 12/11/23 21:35 ABG Base Excess -4.3 mmol/L (-2.0-2.0) L 12/11/23 21:35 [place] Test Pos 12/11/23 21:35 Hematocrit 45.0 % (42-52) 12/11/23 21:35 Hgb O2 Saturation 63.5 % (95-100) L 12/11/23 21:35 Carboxyhemoglobin 1.5 %THgb (0.4-20.1) 12/11/23 21:35 Methemoglobin 1.0 % (0.4-1.5) 12/11/23 21:35 Total Hemoglobin 14.7 g/dL (14-18) 12/11/23 21:35 Sodium 144.0 mmol/L (131-143) H 12/11/23 21:35 Potassium 4.0 mmol/L (3.5-5.0) 12/11/23 21:35 Glucose 173.0 mg/dL (70-115) H 12/11/23 21:35 Ionized Calcium 1.2 mmol/L (1.1-1.4) 12/11/23 21:35 O2 Delivery Device Nc 12/11/23 21:35 O2 Liters/Min 2.0 % 12/11/23 21:35 Snowmaker ID [email or web address] 12/11/23 21:35 Sodium 137 mmol/L (136-145) 12/11/23 21:06 Potassium 4.5 mmol/L (3.5-5.1) 12/11/23 21:06 Chloride 103 mmol/L (98-107) 12/11/23 21:06 Carbon Dioxide 25 mmol/L (22-29) 12/11/23 21:06 Anion Gap 13.5 (5-19) 12/11/23 21:06 BUN 31 mg/dL (6-20) H 12/11/23 21:06 Creatinine 1.8 mg/dL (0.7-1.2) H 12/11/23 21:06 GFR Calculation 39.8 mL/min (90-130) L 12/11/23 21:06 Glucose 194 mg/dL (65-115) H 12/11/23 21:06 POC Glucose 197 mg/dL (70-110) H 12/11/23 20:53 Calculated Osmolality 296 mOsm/kg (285-295) H 12/11/23 21:06 Lactic Acid 2.1 mmol/L (0.5-2.2) 12/11/23 21:06 Calcium 8.4 mg/dL (8.5-10.5) L 12/11/23 21:06 Total Bilirubin 0.4 mg/dL (0.15-1.2) 12/11/23 21:06 AST 23 U/L (0-40) 12/11/23 21:06 ALT 30 U/L (0-41) 12/11/23 21:06 Alkaline Phosphatase 115 U/L (40-130) 12/11/23 21:06 C-Reactive Protein 22.6 mg/L (0.0-4.9) H 12/11/23 21:06 Total Protein 8.0 g/dL (6.6-8.7) 12/11/23 21:06 Albumin 4.6 g/dL (3.5-5.2) 12/11/23 21:06 Globulin 3.4 g/dL (1.3-4.6) 12/11/23 21:06 Urine Color Yellow (Yellow) 12/11/23 19:54 Urine Appearance Clear (CLEAR) 12/11/23 19:54 Urine pH 6.0 (5-7) 12/11/23 19:54 Ur Specific [place] 1.035 (1.005-1.030) H 12/11/23 19:54 Urine Protein 1+ (Negative) A 12/11/23 19:54 Urine Glucose (UA) 3+ (Normal) H 12/11/23 19:54 Urine Ketones Negative (Negative) 12/11/23 19:54 Urine Blood Negative (Negative) 12/11/23 19:54 Urine Nitrate Negative (Negative) 12/11/23 19:54 Urine Bilirubin Negative (Negative) 12/11/23 19:54 Urine Urobilinogen 1.0 mg/dL (Negative) 12/11/23 19:54 Ur Leukocyte Esterase Negative (Negative) 12/11/23 19:54 Urine RBC 0-2 /hpf (0-2) 12/11/23 19:54 Urine WBC 0-5 /hpf (0-5) 12/11/23 19:54 Ur Squamous Epith Cells 0-5 /hpf (0-5) 12/11/23 19:54 Amorphous Sediment Not Reportable 12/11/23 19:54 Urine Bacteria None seen /hpf (NONE) 12/11/23 19:54 Hyaline Casts 2.05 /lpf 12/11/23 19:54 Urine Opiates Screen Positive ng/mL (Negative) H 12/11/23 19:54 Ur Barbiturates Screen Negative ng/mL (Negative) 12/11/23 19:54 Ur Phencyclidine Scrn Negative ng/mL (Negative) 12/11/23 19:54 Ur Amphetamines Screen Negative ng/mL (Negative) 12/11/23 19:54 U Benzodiazepines Scrn Negative ng/mL (Negative) 12/11/23 19:54 Urine Cocaine Screen Negative ng/mL (Negative) 12/11/23 19:54 U Marijuana (THC) Screen Negative ng/mL (Negative) 12/11/23 19:54 Coronavirus (PCR) Negative (Negative) 12/11/23 21:15 Influenza A (PCR) Negative (Negative) 12/11/23 21:15 Influenza Type B (PCR) Negative (Negative) 12/11/23 21:15 RSV (PCR) Negative (Negative) 12/11/23 21:15 All radiology interpretation(s) finalized by discharge Discharge Plan Discharge Patient Disposition: Home Clinical Impression: Acute metabolic encephalopathy, Dehydration, Acute renal insufficiency, Medication reaction Condition: Stable Prescriptions: New doxycycline hyclate 100 mg capsule 100 mg PO BID 5 Days Qty: 10 0RF No Action pregabalin 300 mg capsule 300 mg PO BID amlodipine 10 mg tablet 10 mg PO DAILY 90 Days Qty: 90 2RF atorvastatin 20 mg tablet See Rx Instructions .ROUTE .COMPLEX Qty: 90 3RF Hold Instructions: Home Medication placed on hold at Doctor's office Dose Instruction: TAKE 1 TABLET BY MOUTH EVERY DAY Rx Instructions: TAKE 1 TABLET BY MOUTH EVERY DAY benzonatate 100 mg capsule 100 mg PO .at bedtime 90 Days Qty: 90 2RF buspirone 30 mg tablet 30 mg PO BID PRN (Reason: anxiety) 90 Days Qty: 180 2RF (DME) Dexcom G6 Sensor Device See Rx Instructions .ROUTE .MEDSUPPLY Qty: 3 12RF Rx Instructions: As directed empagliflozin 10 mg tablet 10 mg PO QAM 90 Days Qty: 90 2RF Rx Instructions: 340B fluoxetine 40 mg capsule 40 mg PO DAILY 90 Days Qty: 90 2RF glipizide 10 mg tablet extended release 24hr 10 mg PO BID 90 Days Qty: 180 2RF hydroxyzine HCl 10 mg tablet See Rx Instructions .ROUTE .COMPLEX Qty: 90 2RF Dose Instruction: TAKE 1 TABLET BY MOUTH AT BEDTIME FOR ANXIETY Rx Instructions: TAKE 1 TABLET BY MOUTH AT BEDTIME FOR ANXIETY Lantus Solostar U-100 Insulin 100 unit/mL (3 mL) insulin pen 60 unit SUBCUT DAILY Qty: 15 5RF Rx Instructions: 340B olmesartan 40 mg tablet 40 mg PO DAILY 90 Days Qty: 90 1RF insulin lispro [Humalog KwikPen Insulin] 100 unit/mL insulin pen 5 unit SUBCUT TID MDD 15 30 Days Qty: 15 2RF pantoprazole 40 mg tablet,delayed release (DR/EC) See Rx Instructions .ROUTE .COMPLEX Qty: 90 2RF Dose Instruction: TAKE 1 TABLET BY MOUTH DAILY Rx Instructions: TAKE 1 TABLET BY MOUTH DAILY albuterol sulfate 2.5 mg /3 mL (0.083 %) solution for nebulization 2.5 mg inhalation Q6H Qty: 90 0RF Rx Instructions: Use every 4-6 hours as needed dextromethorphan polistirex 30 mg/5 mL suspension,extended rel 12 hr 10 ml PO .at bedtime PRN (Reason: cough) Qty: 89 1RF (DME) Dexcom G6 Barrel Rifler Broach Misc See Rx Instructions .ROUTE .MEDSUPPLY Qty: 1 0RF Rx Instructions: As directed fluticasone propionate 50 mcg/actuation spray,suspension 1 spray intranasal DAILY PRN (Reason: allergy symptoms) Qty: 16 0RF Rx Instructions: administer into each nostril (DME) pen needle, diabetic [Comfort EZ Pen Novelty] 31 gauge x 5/16 needle See Rx Instructions .Route Qty: 100 11RF Rx Instructions: Use with insulin 4 times daily (DME) Dexcom G6 Transmitter Device See Rx Instructions .ROUTE .MEDSUPPLY Qty: 1 0RF Rx Instructions: As directed Discharge Orders: Discharge ED (Routine); Ordered 12/11/23 Ordered By: Katie Butler Referrals: Brooke Leonard MD [Primary Care Provider] - Discharge Diet: Usual diet Discharge Activity: Increase activity as tolerated Patient Instructions: Hyperglycemia, Altered Mental Status (ED) Activity Restrictions/Additional Instructions: Please discontinue previous antibiotics and hydrocodone. Thank you for choosing [facility] for your healthcare needs today. Please realize this is an emergency room and that we are providing you with a medical screening exam and this may not be complete and all inclusive of all the testing and or work up that you may need to determine your ailment or severity of your illness. You have been screened and evaluated and felt safe for discharge. Health conditions do change or evolve sometimes and as such it is important that you follow up with your Primary Doctor to be re checked, 3-5 days is a general good time frame for follow up. You are always welcome to return to the ED for re assessment if your symptoms are worsening or you have new concerns Coding Level of Care Code ED Medical Coding Technician for Alexia Moran
[2023-12-11 21:00] VITALS: BP 159/93; PULSE 93; O2SAT 100
--- NOTE | 2023-12-11 21:08 | ECG_ITS ---
[facility] Test Date: 2023-12-11 Pat Name: Milton Santizo Department: Room: Gender: Male Band Manager: : 1970 Requested By: Katie Snigh Order Number: [id number] George MD: Yamilka Ness M.D. Measurements Intervals [place] Rate: 97 P: -2 DC: 208 QRS: 9 QRSD: 98 T: 43 QT: 319 QTc: 405 Interpretive Statements SINUS RHYTHM LOW QRS VOLTAGE IN PRECORDIAL LEADS [QRS DEFLECTION < 1.0 mV IN CHEST LEADS] No previous ECG available for comparison Electronically Signed On 12-12-2023 01:25:52 CDT by Yamilka Ness M.D. [email or web address]
[2023-12-11 21:13] LABS: Glucose Point of Care 197 mg/dL (70-110)
[2023-12-11 21:13] LABS: Basophils % 0.2 %; Hematocrit 46.6 % (37-53); Lymphocytes # 1.4 10^3/uL (0.8-4.8); Lymphocytes % 11.7 %; Mean Corpuscular HGB Conc 31.8 g/dL (30-55); Mean Corpuscular Hemoglobin 26.5 pg (27-33); Mean Corpuscular Volume 83.5 fl (82-101); Mean Platelet Volume 9.5 fL (7.4-10.4); Monocytes # 1.1 10^3/uL (0.2-0.9); Monocytes % 9.3 %; Neutrophils # 9.35 10^3/uL (1.8-7.7); Nucleated Red Blood Cells % 0 %; Platelet Count 245 10^3/cmm (157-399); Red Blood Count 5.58 10^6/uL (3.85-5.65); Red Cell Distribution Width 15.5 % (12.1-15.1); White Blood Count 11.98 10^3/uL (3.29-11.43)
[2023-12-11 21:36] LABS: Alanine Aminotransferase 30 U/L (0-41); Albumin Level 4.6 g/dL (3.5-5.2); Alkaline Phosphatase 115 U/L (40-130); Anion Gap 13.5 (5-19); Aspartate Amino Transferase 23 U/L (0-40); Blood Urea Nitrogen 31 mg/dL (6-20); C Reactive Protein 22.6 mg/L (0.0-4.9); Calcium 8.4 mg/dL (8.5-10.5); Carbon Dioxide 25 mmol/L (22-29); Chloride 103 mmol/L (98-107); Creatinine Clr Calc Pharmacy 63.0528; Globulin 3.4 g/dL (1.3-4.6); Glomerular Filtration Rate 39.8 mL/min (90-130); Glucose 194 mg/dL (65-115); Osmolality Calculated 296 mOsm/kg (285-295); Potassium 4.5 mmol/L (3.5-5.1); Sodium 137 mmol/L (136-145); Total Bilirubin 0.4 mg/dL (0.15-1.2)
[2023-12-11 21:37] LABS: Lactic Sepsis W/Reflex 2.1 mmol/L (0.5-2.2)
[2023-12-11 21:43] LABS: ABG PH Result 7.24 (7.35-7.45); Base Excess ABG -4.3 mmol/L (-2.0-2.0); Blood Gas Allen Test Pos; Blood Gas Sample Site Brachial, right; Blood Gas Sample Type Venous; Carboxyhemoglobin 1.5 %THgb (0.4-20.1); HCO3 ABG 24.1 mmol/L (22-26); HGB O2 Sat 63.5 % (95-100); Ionized Calcium Level - ABG 1.2 mmol/L (1.1-1.4); Oxygen Device NC; Oxygen Saturation ABG 65.2; PO2 ABG 31.1 mmHg (80.0-100.0); Total Hemoglobin 14.7 g/dL (14-18)
[2023-12-11] MEDS: sodium chloride 0.9% 1,000 ML 999 ML IV ×2 (21:53→22:25)
[2023-12-11 21:57] LABS: Covid PCR NEGATIVE (Negative); Influenza A NEGATIVE (Negative); Influenza B NEGATIVE (Negative); Respiratory Syncytial Virus Ce NEGATIVE (Negative)
[2023-12-11 22:02] LABS: Amphetamines Screen Urine Negative (Negative); Barbiturates Screen Urine Negative (Negative); Benzodiazepines Screen Urine Negative (Negative); Cocaine Screen Urine Negative (Negative); Opiate Screen Urine Positive (Negative); PCP Screen Urine Negative (Negative); THC Screen Urine Negative (Negative)
[2023-12-11 22:58] LABS: Reflex Lactate Order REFLEX LACTIC ORDERD
[2023-12-11 23:20] VITALS: BP 115/72; PULSE 84; O2SAT 91
[2023-12-12 00:04] VITALS: BP 142/102; PULSE 92; O2SAT 93
== END 2023-12-11 23:55 | disposition home or self-care (01) ==
PROVIDERS: Emergency Medicine; Emergency Provider Emergency Medicine; PCP Family Medicine
DX: G93.41 Metabolic encephalopathy (principal); E86.0 Dehydration; T40.2X5A Adverse effect of other opioids, initial encounter; E11.22 Type 2 diabetes mellitus with diabetic chronic kidney disease; I12.9 Hypertensive chronic kidney disease with stage 1 through stage 4 chronic kidney disease, or unspecified chronic kidney disease; N18.9 Chronic kidney disease, unspecified; E78.5 Hyperlipidemia, unspecified; Z11.52 Encounter for screening for COVID-19
CPT/HCPCS: 0241U; 36415; 36416; 36600; 70450; 71045; 80051; 80053; 80306; 81001; 82330; 82805; 82962; 83605; 85025; 86140; 87040; 93005; 99285; J7030

== ENCOUNTER → 2024-01-02 13:20 | Outpatient (BNVA) | payer MEDICARE, SELFPAY | PROVIDERS: PCP Family Medicine; Visit Provider Family Medicine | DX: E11.9 Type 2 diabetes mellitus without complications (principal); E78.00 Pure hypercholesterolemia, unspecified | CPT/HCPCS: 80048; 80061; 83036 ==

== ENCOUNTER → 2024-07-08 14:34 | Outpatient (BNVA) | payer MEDICARE, SELFPAY | PROVIDERS: PCP Family Medicine; Visit Provider Family Medicine | DX: E11.9 Type 2 diabetes mellitus without complications (principal) | CPT/HCPCS: 80048; 83036 ==

== ENCOUNTER 2024-08-07 21:49 | Emergency (ER) | payer MEDICARE, SELFPAY ==
[2024-08-07 22:02] VITALS: BP 164/80; PULSE 85; RESP 18; TEMP 36.7; O2SAT 92
--- NOTE | 2024-08-07 23:20 | XRR_ITS ---
PROCEDURE INFORMATION: Exam: XR Chest Exam date and time: 08/07/2024 11:22 PM Age: 54 years old Clinical indication: Dyspnea; Additional info: Shortness of breath, cough TECHNIQUE: Imaging protocol: Radiologic exam of the chest. Views: 2 views. COMPARISON: CR XR chest 1V portable [id number] 12/11/2023 9:25 PM FINDINGS: Tubes, catheters and devices: Post posterior instrumentation of the lower cervical spine. Lungs: Patchy consolidation in the right upper lung zone. Pleural spaces: Unremarkable. No pleural effusion. No pneumothorax. Heart/Mediastinum: The heart is enlarged. Bones/joints: Moderate degenerative disease of bilateral acromioclavicular joints. Post ACDF of the lower cervical spine. The thoracic spine demonstrates mild degenerative changes at multiple levels. XR/XR chest 2V* [id number] IMPRESSION: Patchy consolidation in the right upper lung zone, suggestive of pneumonia.
[2024-08-07 23:27] VITALS: BP 139/94; PULSE 85; RESP 20; O2SAT 90
[2024-08-07] MEDS: oxyCODONE-APAP 5-325 mg Tablet 1 TAB PO (23:28)
[2024-08-07 23:30] VITALS: BP 152/79; PULSE 76; O2SAT 94
[2024-08-08] VITALS: BP 133/77; PULSE 75; O2SAT 95
[2024-08-08 00:03] LABS: Influenza A NEGATIVE (Negative); Influenza B NEGATIVE (Negative); Respiratory Syncytial Virus Ce NEGATIVE (Negative)
[2024-08-08 00:25] LABS: SARS-CoV-2 PCR Positive (Negative)
[2024-08-08 01:13] VITALS: BP 137/86; PULSE 80; O2SAT 95
[2024-08-08] MEDS: azithromycin 250 mg Tablet 500 MG PO (01:14)
--- NOTE | 2024-08-08 01:15 | W.ED.SOB ---
HPI - SOB/Dyspnea General: Chief Complaint: Shortness of Breath/Dyspnea Stated Complaint: Deep cough for a week eyes are foggy Time Seen by Provider: 08/07/24 23:02 History of Present Illness: HPI Narrative: Patient presents with cough and congestion ongoing for about a week and a half. Symptoms began with an ear infection, then progressed to cough and upper respiratory symptoms. The patient reports difficulty breathing, postnasal drainage causing choking, and significant sinus congestion. Initially, the cough was dry but has become productive over the last couple of days. The patient denies chest pain. There is no clear report of shortness of breath, but the patient notes difficulty breathing and being choked up. The illness has affected the entire household, suggesting a viral etiology. The patient has a remote history of smoking but denies current tobacco use and has no history of asthma. There is a history of a blood clot in the liver, but no known history of blood clots in the lungs or heart attack. The patient has been taking Sudafed, Mucinex, and NyQuil for symptom relief. Related Data Home Medications ?Medication ?Instructions ?Recorded ?Confirmed pregabalin 300 mg capsule 300 mg PO BID 08/17/22 07/08/24 Previous Rx's ?Medication ?Instructions ?Recorded benzonatate 100 mg capsule 100 mg PO .at bedtime cough 90 10/02/23 days #90 caps buspirone 30 mg tablet 30 mg PO BID PRN anxiety 90 days 10/02/23 #180 tabs amlodipine 10 mg tablet 10 mg PO DAILY 90 days #90 tabs 04/02/24 empagliflozin 10 mg tablet 10 mg PO QAM 90 days #90 tabs 04/02/24 fluoxetine 40 mg capsule 40 mg PO DAILY 90 days #90 caps 04/02/24 glipizide 10 mg tablet, extended 10 mg PO BID 90 days #180 tabs 04/02/24 release 24 hr insulin glargine 100 unit/mL (3 See Rx Instructions .Route 04/02/24 mL) subcutaneous pen (Lantus .COMPLEX #15 mL Solostar U-100 Insulin) insulin lispro 100 unit/mL 5 unit (0.05 mL) SUBCUT TID 30 04/02/24 subcutaneous pen (Humalog #15 mL (U-100) Insulin) levocetirizine 5 mg tablet 5 mg PO DAILY PRN allergy symptoms 04/02/24 #30 tabs olmesartan 40 mg tablet 40 mg PO DAILY 90 days #90 tabs 04/02/24 pantoprazole 40 mg tablet,delayed See Rx Instructions .Route 04/02/24 release .COMPLEX #90 tabs pen needle, diabetic 31 gauge x #100 ea 04/02/2407/19 (Comfort EZ Pen [place]) triamcinolone acetonide 0.1 % 1 applic topical BID PRN itching 05/01/24 topical cream #454 grams 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 sensor (Dexcom G6 #3 ea 06/25/24 Sensor device) 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 transmitter (Dexcom #1 ea 06/25/24 G6 Transmitter device) 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,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,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 #1 ea 06/25/24 (Dexcom G6 Backup Operator) furosemide 20 mg tablet (Lasix) 20 mg PO QAM #30 tabs 06/25/24 atorvastatin 20 mg tablet See Rx Instructions .Route 07/08/24 .COMPLEX #90 tabs dulaglutide 0.75 mg/0.5 mL 0.75 mg (0.5 mL) SUBCUT .WEEKLY #1 07/08/24 subcutaneous [facility] hydroxyzine HCl 10 mg tablet See Rx Instructions .Route 07/08/24 .COMPLEX #90 tabs azithromycin 250 mg tablet 250 mg PO DAILY 4 days #4 tabs 08/08/24 Allergies Allergy/AdvReac Type Severity Reaction Status Date / Time amoxicillin Allergy Unknown UNKNOWN Verified 08/07/24 22:07 tramadol Allergy Unknown UNKNOWN Verified 08/07/24 22:07 [facility] ED PFS: Medical History Panic CKD (chronic kidney disease) Multiple allergies Erectile dysfunction PRATEEK (generalized anxiety disorder) Type 2 diabetes mellitus Unable to tolerate Metformin. ELENA (obstructive sleep apnea) GERD (gastroesophageal reflux disease) Benign hypertension Hyperlipidemia Surgical History H/O neck surgery Previous back surgery S/P vasectomy Family History Mother Cancer Father Diabetes Other Hypertension Social History Smoking and tobacco/nicotine status: never used tobacco/nicotine Second hand smoke exposure: No Alcohol intake: current Alcohol intake frequency: few times a week Alcohol type: beer Substance/Drug Use: never Caregiver/support person: No Household members: foster family Housing: House Marital status: Legally Current occupational status: disabled Do you think of yourself as: Straight/Heterosexual Current gender identity: Male Physical Exam Const: COMMON NORMALS: no acute distress, patient oriented x3 and alert HENMT: COMMON NORMALS: normocephalic and atraumatic HEAD & SCALP: normocephalic and atraumatic Eye: COMMON NORMALS: Equal, round and reactive pupils present, EOMs intact bilaterally and no scleral icterus PUPIL: Yes Equal, round and reactive pupils present Resp: COMMON NORMALS: normal respiratory effort and No retractions Cardio: COMMON NORMALS: regular rate, regular rhythm and No murmurs present (Cardio) RATE: regular rate RHYTHM: regular rhythm GI: COMMON NORMALS: Normal to inspection, nondistended, normoactive bowel sounds present, Soft to palpation and non-tender PALPATION: Yes Soft to palpation Neuro: COMMON NORMALS: patient oriented x3 SENSORIUM/ORIENTATION: Yes alert Skin: COMMON NORMALS: no rashes or lesions noted GENERAL SKIN EXAM: no rashes or lesions noted Course Vital Signs: Vital signs: Vital Signs Temperature 98.0 F 08/07/24 22:02 Pulse Rate 80 08/08/24 01:13 Respiratory Rate 20 H 08/07/24 23:27 Blood Pressure 137/86 08/08/24 01:13 Pulse Oximetry 95 08/08/24 01:13 Oxygen Delivery Me thod Room Air 08/07/24 22:02 MDM - SOB/Dyspnea Medical Decision Making Patient remained hemodynamically stable through ED course. Chest x-ray shows right upper lobe pneumonia which I suspect to be mycoplasma given location. COVID-19 test is positive. Oxygen saturation is 91% on room air at time of disposition and he would like to go home. I think this is reasonable. He knows that he should return to the emergency department if he gets more short of breath but feels he is clinically getting worse. He was given first dose of azithromycin and will be given a 4-day course of the same. Patient and family showed understanding and agreed to the plan Lab Data Labs/Radiology: Radiology Impressions Chest X-Ray 08/07/24 23:20 IMPRESSION: Patchy consolidation in the right upper lung zone, suggestive of pneumonia. Laboratory Results Influenza A (PCR) Negative (Negative) 08/07/24 23:21 Influenza Type B (PCR) Negative (Negative) 08/07/24 23:21 RSV (PCR) Negative (Negative) 08/07/24 23:21 SARS-CoV-2 (PCR) Positive (Negative) A 08/07/24 23:21 All radiology interpretation(s) finalized by discharge Discharge Plan Discharge Patient Disposition: Home Clinical Impression: Pneumonia of right upper lobe due to infectious organism, COVID-19 Condition: Stable Prescriptions: New azithromycin 250 mg tablet 250 mg PO DAILY 4 Days Qty: 4 0RF Rx Instructions: first dose given in ED No Action pregabalin 300 mg capsule 300 mg PO BID benzonatate 100 mg capsule 100 mg PO .at bedtime 90 Days Qty: 90 2RF buspirone 30 mg tablet 30 mg PO BID PRN (Reason: anxiety) 90 Days Qty: 180 2RF amlodipine 10 mg tablet 10 mg PO DAILY 90 Days Qty: 90 2RF empagliflozin 10 mg tablet 10 mg PO QAM 90 Days Qty: 90 2RF Rx Instructions: 340B fluoxetine 40 mg capsule 40 mg PO DAILY 90 Days Qty: 90 2RF glipizide 10 mg tablet extended release 24hr 10 mg PO BID 90 Days Qty: 180 2RF Lantus Solostar U-100 Insulin 100 unit/mL (3 mL) insulin pen See Rx Instructions .ROUTE .COMPLEX Qty: 15 5RF Dose Instruction: INJECT 60 UNITS SUBCUTANEOUS ROUTE ONCE DAILY Rx Instructions: INJECT 60 UNITS SUBCUTANEOUS ROUTE ONCE DAILY insulin lispro [Humalog KwikPen Insulin] 100 unit/mL insulin pen 5 unit SUBCUT TID MDD 15 30 Days Qty: 15 2RF olmesartan 40 mg tablet 40 mg PO DAILY 90 Days Qty: 90 2RF pantoprazole 40 mg tablet,delayed release (DR/EC) See Rx Instructions .ROUTE .COMPLEX Qty: 90 2RF Dose Instruction: TAKE 1 TABLET BY MOUTH DAILY Rx Instructions: TAKE 1 TABLET BY MOUTH DAILY levocetirizine 5 mg tablet 5 mg PO DAILY PRN (Reason: allergy symptoms) Qty: 30 5RF (DME) pen needle, diabetic [Comfort EZ Pen [place]] 31 gauge x 5/16 needle See Rx Instructions .Route Qty: 100 11RF Rx Instructions: Use with insulin 4 times daily triamcinolone acetonide 0.1 % cream 1 applic topical BID PRN (Reason: itching) Qty: 454 1RF hydroxyzine HCl 10 mg tablet See Rx Instructions .ROUTE .COMPLEX Qty: 90 2RF Dose Instruction: TAKE 1 TABLET BY MOUTH AT BEDTIME FOR ANXIETY Rx Instructions: TAKE 1 TABLET BY MOUTH AT BEDTIME FOR ANXIETY atorvastatin 20 mg tablet See Rx Instructions .ROUTE .COMPLEX Qty: 90 3RF Dose Instruction: TAKE 1 TABLET BY MOUTH EVERY DAY Rx Instructions: TAKE 1 TABLET BY MOUTH EVERY DAY Trulicity 0.75 mg/0.5 mL pen injector 0.75 mg SUBCUT .WEEKLY Qty: 1 2RF (DME) Dexcom G6 Backup Operator Misc See Rx Instructions .ROUTE .MEDSUPPLY Qty: 1 11RF Rx Instructions: As directed (DME) Dexcom G6 Sensor Device See Rx Instructions .ROUTE .MEDSUPPLY Qty: 3 11RF Rx Instructions: As directed (DME) Dexcom G6 Transmitter Device See Rx Instructions .ROUTE .MEDSUPPLY Qty: 1 11RF Rx Instructions: As directed furosemide [Lasix] 20 mg tablet 20 mg PO QAM Qty: 30 0RF Discharge Orders: Discharge ED (Routine); Ordered 08/08/24 Ordered By: Javi Fabian Referrals: Brooke Leonard MD [Primary Care Provider, Family Practice] Discharge Diet: Advance as tolerated Discharge Activity: Increase activity as tolerated Patient Instructions: Pneumonia (ED), COVID-19 (Coronavirus Disease 2019) (ED) Print Language: Z[place]ian Coding Level of Care Code ED Office Lead for Alexia Moran
== END 2024-08-08 01:14 | disposition home or self-care (01) ==
PROVIDERS: Emergency Provider Student in an Organized Health Care Education/Training Program; PCP Family Medicine
DX: J18.9 Pneumonia, unspecified organism (principal); U07.1 COVID-19; Z79.4 Long term (current) use of insulin; Z11.52 Encounter for screening for COVID-19; E78.5 Hyperlipidemia, unspecified; E11.22 Type 2 diabetes mellitus with diabetic chronic kidney disease; I12.9 Hypertensive chronic kidney disease with stage 1 through stage 4 chronic kidney disease, or unspecified chronic kidney disease; N18.9 Chronic kidney disease, unspecified
CPT/HCPCS: 71046; 87637; 99284; J9999; Q0144

== ENCOUNTER → 2024-10-15 13:30 | Outpatient (BNVA) | payer MEDICARE, SELFPAY | PROVIDERS: PCP Family Medicine; Visit Provider Family Medicine | DX: E11.9 Type 2 diabetes mellitus without complications (principal) | CPT/HCPCS: 80053; 80061; 83036 ==

== ENCOUNTER → 2025-02-19 13:30 | Outpatient (BNVA) | payer MEDICARE, SELFPAY | PROVIDERS: PCP Family Medicine; Visit Provider Family Medicine | DX: E11.9 Type 2 diabetes mellitus without complications (principal); Z12.5 Encounter for screening for malignant neoplasm of prostate | CPT/HCPCS: 80048; 83036; G0103 ==